=== PATIENT | female | born 1965 | race Two or more races ===

== ENCOUNTER 2021-03-12 09:13 | Emergency (ER) | payer OTHER ==
[~2021-03-12] VITALS: Ht 167.6 cm; Wt 65.0 kg
[2021-03-12] MEDS ORDERED: MORPHINE SULFATE 4 MG/ML CPJ (NOT FOR IM USE) IV STA (10:01)
[2021-03-12] MEDS ORDERED: ONDANSETRON HCL 4MG/2ML INJ IV STA (10:01)
[2021-03-12] MEDS ORDERED: SODIUM CHLORIDE 0.9% 1,000 ML IV ONE (10:15)
[2021-03-12 10:28] LABS: CHLORIDE 103 mEq/L (98-107)
[2021-03-12 10:29] LABS: BASOPHILS % 0.4 % (0.0-2.0); EOSINOPHILS % 1.4 % (0.0-5.0); HEMATOCRIT. 45.9 % (36.0-48.0); HEMOGLOBIN. 15.3 g/dL (12.0-16.0); LYMPHOCYTES % 9.3 % (20.0-50.0); MEAN CORPUSCULAR HEMOGLOBIN 28.5 pg (28.0-32.0); MEAN CORPUSCULAR VOLUME 85.9 fL (81.0-99.0); MONOCYTES % 3.6 % (2.0-8.0); NEUTROPHILS % 85.3 % (40.0-76.0); PLATELET 250 x1000/uL (130-400); RED BLOOD CELL COUNT 5.35 mill/uL (4.2-5.4); RED CELL DISTRIBUTION WIDTH 13.9 % (11.6-14.6)
[2021-03-12 10:38] LABS: CREATINE KINASE 123 IU/L (26-192)
[2021-03-12 10:39] LABS: CREATINE KINASE MB FRACTION < 1.0 ng/mL (0.5-3.6)
[2021-03-12] MEDS ORDERED: INSULIN REGULAR (HUMULIN R) 300UNITS/3ML VIAL IV ONE ×2 (11:15→12:00)
[2021-03-12] MEDS ORDERED: HYDR-4001 MT (13:41)
[2021-03-12] MEDS ORDERED: METF-414 PO (14:13)
[2021-03-12] MEDS ORDERED: IOHEXOL-300 100 ML BOTTLE ONE (14:14)
[2021-03-12 17:19] VITALS: BP 133/69
== END 2021-03-12 17:00 | disposition home or self-care (01) ==
LOC: ER 09:18
DX: M54.59 Other low back pain (principal); R07.9 Chest pain, unspecified; R10.9 Unspecified abdominal pain; E11.9 Type 2 diabetes mellitus without complications; V43.52XA Car driver injured in collision with other type car in traffic accident, initial encounter; Y93.89 Activity, other specified; Y92.410 Unspecified street and highway as the place of occurrence of the external cause; Z79.4 Long term (current) use of insulin; Z98.51 Tubal ligation status
CPT/HCPCS: 36415; 71045; 71260; 72125; 72146; 73562; 74177; 80053; 82550; 82553; 82962; 83880; 84484; 85025; 93005; 96361; 96374; 96375; 99291; J1815; J2270; J2405; J7030; L1830; Q9967; Z7610

== ENCOUNTER 2022-07-02 00:44 | Emergency (ER) | payer OTHER ==
[~2022-07-02] VITALS: Ht 165.1 cm; Wt 76.0 kg
[~2022-07-02 00:44] MED LIST: HYDR-4001 MT; METF-414 PO
[2022-07-02 01:15] VITALS: BP 157/115
== END 2022-07-02 11:35 | disposition home or self-care (01) ==
LOC: ER 00:44
DX: K92.1 Melena (principal); K59.00 Constipation, unspecified; Z98.51 Tubal ligation status
CPT/HCPCS: 99281